=== PATIENT | male | born 1935 | race Caucasian/White ===

== ENCOUNTER 2017-05-05 13:46 | Outpatient (CLI) | payer MEDICARE, BC | END 2017-05-05 13:47 | disposition home or self-care (01) | DRG 556 | LOC: CONVCARE 13:46 | PROVIDERS: ATTEND Orthopaedic Surgery | DX: M25.551 Pain in right hip (principal); M46.1 Sacroiliitis, not elsewhere classified; M54.5 Low back pain; M51.36 Other intervertebral disc degeneration, lumbar region | CPT/HCPCS: 72120; 73502 ==

== ENCOUNTER 2017-05-13 11:29 | Day surgery (SDC) | payer MEDICARE, BC ==
[2017-05-13] MEDS ORDERED: TRIAMCINOLONE ACETONIDE 40 MG/ML SUS ONE (12:11)
[2017-05-13] MEDS ORDERED: BUPIVACAINE HCL 0.5% MPF 10 ML SOL ONE (12:12)
[2017-05-13 12:46] VITALS: BP 116/72; PULSE 78; RESP 20; TEMP 98; O2SAT 95
== END 2017-05-13 13:00 | disposition home or self-care (01) | DRG 554 ==
LOC: SURG 11:29
PROVIDERS: ATTEND Nurse Anesthetist, Certified Registered
DX: M12.9 Arthropathy, unspecified (principal); M54.5 Low back pain
CPT/HCPCS: J3300

== ENCOUNTER 2017-08-28 13:01 | Outpatient (CLI) | payer MEDICARE, BC ==
[2017-05-13 12:46] VITALS: O2SAT 95
== END 2017-08-28 13:02 | disposition home or self-care (01) | DRG 558 ==
LOC: CONVCARE 13:01
PROVIDERS: ATTEND Orthopaedic Surgery
DX: M70.21 Olecranon bursitis, right elbow (principal)
CPT/HCPCS: 73070

== ENCOUNTER 2017-09-11 11:20 | Day surgery (SDC) | payer MEDICARE, BC ==
[~2017-09-11 11:20] MED LIST: FENTANYL 100MCG/2ML SOL ONE; LIDOCAINE HCL 1% MPF SOL ONE; PROPOFOL 10 MG/ML EMU IV ONE
[2017-09-11] MEDS ORDERED: CEFAZOLIN SODIUM 1 GM PDS ONE (13:14)
[2017-09-11] MEDS ORDERED: BUPIVACAINE HCL 0.5% MPF 10 ML SOL ONE ×2 (13:54→13:55)
[2017-09-11 15:26] VITALS: BP 156/70; PULSE 77; RESP 20; TEMP 97; O2SAT 96
== END 2017-09-11 15:55 | disposition home or self-care (01) | DRG 558 ==
LOC: SURG 11:20
PROVIDERS: ATTEND Orthopaedic Surgery
DX: M70.22 Olecranon bursitis, left elbow (principal); M25.721 Osteophyte, right elbow
CPT/HCPCS: 73070; 76000; 87070; 87075; J0690; J3010; A6402; A6446; J2001; J2704

== ENCOUNTER 2017-09-25 10:38 | Day surgery (SDC) | payer MEDICARE, BC ==
[2017-09-25 12:19] VITALS: O2SAT 97
[2017-09-25] MEDS ORDERED: BUPIVACAINE HCL 0.25% MPF 10 ML SOL INFIL ONE (12:43)
[2017-09-25] MEDS ORDERED: LIDOCAINE HCL 1% MPF SOL ONE ×2 (12:43→12:44)
[2017-09-25] MEDS: TRIAMCINOLONE ACETONIDE 40 MG/ML SUS ONE ×2 (12:57→13:05)
[2017-09-25 13:22] VITALS: BP 153/88; PULSE 69; RESP 18; TEMP 97.6
== END 2017-09-25 13:46 | disposition home or self-care (01) | DRG 554 ==
LOC: SURG 10:38
PROVIDERS: ATTEND Nurse Anesthetist, Certified Registered
DX: M12.88 Other specific arthropathies, not elsewhere classified, other specified site (principal); M54.5 Low back pain
CPT/HCPCS: J2001; J3300

== ENCOUNTER 2017-10-10 10:02 | Day surgery (SDC) | payer MEDICARE, BC ==
[2017-10-10] MEDS ORDERED: BUPIVACAINE HCL 0.25% MPF 10 ML SOL INFIL ONE (11:26)
[2017-10-10] MEDS ORDERED: LIDOCAINE HCL 1% MPF SOL ONE (11:26)
[2017-10-10] MEDS: DEXAMETHASONE SOD PHOS PF 10 MG/ML SOL IJ ONE ×2 (11:46→11:56)
[2017-10-10 12:18] VITALS: BP 142/87; PULSE 74; RESP 16; TEMP 98.6; O2SAT 95
== END 2017-10-10 12:53 | disposition home or self-care (01) | DRG 554 ==
LOC: SURG 10:02
PROVIDERS: ATTEND Nurse Anesthetist, Certified Registered
DX: M12.88 Other specific arthropathies, not elsewhere classified, other specified site (principal)
CPT/HCPCS: J1100; J2001

== ENCOUNTER 2017-10-29 12:22 | Day surgery (SDC) | payer MEDICARE, BC ==
[2017-10-29] MEDS ORDERED: LIDOCAINE HCL 1% MPF SOL ONE (12:43)
[2017-10-29] MEDS ORDERED: BUPIVACAINE HCL 0.25% MPF 10 ML SOL INFIL ONE (12:43)
[2017-10-29 13:37] VITALS: PULSE 86; RESP 18; TEMP 99.4; O2SAT 95
[2017-10-29 14:00] VITALS: BP 153/82
== END 2017-10-29 13:55 | disposition home or self-care (01) | DRG 554 ==
LOC: SURG 12:22
PROVIDERS: ATTEND Nurse Anesthetist, Certified Registered
DX: M12.88 Other specific arthropathies, not elsewhere classified, other specified site (principal)
CPT/HCPCS: A6402; J2001

== ENCOUNTER 2017-11-19 12:19 | Day surgery (SDC) | payer MEDICARE, BC ==
[2017-11-19] MEDS ORDERED: TRIAMCINOLONE ACETONIDE 40 MG/ML SUS ONE (12:52)
[2017-11-19] MEDS ORDERED: BUPIVACAINE HCL 0.25% MPF 10 ML SOL INFIL ONE (12:53)
[2017-11-19 13:24] VITALS: BP 138/75; PULSE 77; RESP 18; TEMP 97.5; O2SAT 94
== END 2017-11-19 13:45 | disposition home or self-care (01) | DRG 552 ==
LOC: SURG 12:19
PROVIDERS: ATTEND Nurse Anesthetist, Certified Registered
DX: M53.3 Sacrococcygeal disorders, not elsewhere classified (principal); M12.88 Other specific arthropathies, not elsewhere classified, other specified site
CPT/HCPCS: J3300

== ENCOUNTER 2018-03-30 07:17 | Day surgery (SDC) | payer MEDICARE, BC ==
[2018-03-30] MEDS ORDERED: FENTANYL 100MCG/2ML SOL ONE (07:47)
[2018-03-30] MEDS ORDERED: MIDAZOLAM 2 MG/2 ML SOL ONE (07:47)
[2018-03-30] MEDS ORDERED: BUPIVACAINE HCL 0.25% MPF 30 ML SOL INFIL ONE (08:09)
[2018-03-30] MEDS ORDERED: LIDOCAINE HCL 2% MPF 10 ML SOL ONE (08:09)
[2018-03-30] MEDS ORDERED: SODIUM CHLORIDE 0.9% FLUSH 10 ML SOL IV ONE (08:15)
[2018-03-30] MEDS: TRIAMCINOLONE ACETONIDE 40 MG/ML SUS ONE ×2 (08:43→08:44)
[2018-03-30 09:00] VITALS: BP 147/81; PULSE 65; RESP 18; TEMP 97.7; O2SAT 95
== END 2018-03-30 09:30 | disposition home or self-care (01) | DRG 554 ==
LOC: SURG 07:17
PROVIDERS: ATTEND Nurse Anesthetist, Certified Registered
DX: M12.88 Other specific arthropathies, not elsewhere classified, other specified site (principal)
CPT/HCPCS: J2250; J3010; J3300

== ENCOUNTER → 2018-11-10 | Day surgery (SDC) | payer MEDICARE, BC ==
[~2018-11-10] MED LIST changes: +BUPIVACAINE HCL 0.25% MPF 30 ML SOL INFIL ONE; -FENTANYL 100MCG/2ML SOL ONE; +LIDOCAINE HCL 1% MPF 30 SOL ONE; -LIDOCAINE HCL 1% MPF SOL ONE; -PROPOFOL 10 MG/ML EMU IV ONE
[2018-11-10 14:47] VITALS: PULSE 70
[2018-11-10] MEDS: TRIAMCINOLONE ACETONIDE 40 MG/ML SUS ONE ×2 (14:47→14:54)
[2018-11-10 15:08] VITALS: BP 138/77; RESP 20; TEMP 97.5; O2SAT 96
== END | disposition home or self-care (01) | DRG 554 ==
LOC: SURG 13:37
PROVIDERS: ATTEND Nurse Anesthetist, Certified Registered
DX: M12.9 Arthropathy, unspecified (principal)
CPT/HCPCS: J2001; J3300